=== PATIENT | female | born 1975 | race Two or more races ===

== ENCOUNTER 2017-10-05 06:22 | Day surgery (SDC) | payer OTHER ==
[~2017-10-05 06:22] MED LIST: PANADOL EXTRA500 MG PO; VIT C-ROSE HIP500 MG PO
== END 2017-10-05 12:50 | disposition home or self-care (01) ==
LOC: CIR.AMB 06:22
DX: N84.0 Polyp of corpus uteri (principal); N72 Inflammatory disease of cervix uteri

== ENCOUNTER 2020-10-23 13:01 | Emergency (ER) | payer OTHER ==
[~2020-10-23] VITALS: Ht 167.6 cm; Wt 88.5 kg
[2020-10-23] MEDS ORDERED: TYLENOL ARTHRI650 MG (13:29)
[2020-10-23] MEDS ORDERED: PROBIOTIC1 EAC2 PO (19:01)
[2020-10-23] MEDS ORDERED: FLAGYL500MG PO (19:01)
[2020-10-23] MEDS ORDERED: CIPRO500 MG PO (19:01)
== END 2020-10-23 19:28 | disposition home or self-care (01) ==
LOC: ER 13:01
DX: R10.84 Generalized abdominal pain (principal)

== ENCOUNTER 2020-11-25 07:40 | Day surgery (SDC) | payer OTHER ==
[~2020-11-25 07:40] MED LIST changes: +CIPRO500 MG PO; +FLAGYL500MG PO; +PROBIOTIC1 EAC2 PO; +TYLENOL ARTHRI650 MG
== END 2020-11-26 16:45 | disposition home or self-care (01) ==
LOC: AMB-ENDOS 07:40
PROVIDERS: ATTEND Colon & Rectal Surgery
DX: D12.3 Benign neoplasm of transverse colon (principal); K64.0 First degree hemorrhoids; Z20.822 Contact with and (suspected) exposure to COVID-19